=== PATIENT | female | born 1980 | race Asian ===

== ENCOUNTER 2019-06-07 14:09 | Emergency (ER) | payer SELFPAY ==
[~2019-06-07] VITALS: Ht 165.1 cm; Wt 81.6 kg
--- NOTE | 2019-06-07 14:32 | NUR ---
ED Nurse Note: Pt walked into ED w/ c/o abdominal pain that started on L side and radiates to R side and back. Pt states she has had frequent urination. Pt is alert and orientedx4, ambulatory. Pt states she has FARLEY 5/10.
[2019-06-07 14:35] VITALS: BP 152/96
--- NOTE | 2019-06-07 14:40 | Emergency Room Report ---
History of Present Illness General Chief Complaint: Female Urogenital Problems Source: Patient Present Illness [facility] Disclaimer: Please note that this report is being documented using DRAGON technology. This can lead to erroneous entry secondary to incorrect interpretation by the dictating instrument. HPI: 39-year-old female with no reported medical history presents for evaluation of pelvic pain and dysuria. Symptoms began 2 days ago. She now notes 10/10 sharp stabbing pain in the suprapubic region that does not radiate. She denies fever, chills, nausea, vomiting. Denies diarrhea, vaginal discharge or vaginal bleeding. LMP was May 29. Notes increased urinary urgency, frequency and dysuria. No recent history of antibiotic use or history of recurrent UTIs. Tolerating p.o. without difficulty. PMH: Denies PSH: Denies Allergies: Denies Social Hx: Denies Allergies: Coded Allergies: No Known Allergies (Unverified , 06/07/19) Patient History Last Menstrual Period: 05/29/19 Nursing Documentation-PMH Past Medical History: No Stated History Review of Systems All Other Systems: negative except mentioned in HPI Physical Exam Vital Signs Date Time Temp Pulse Resp B/P (MAP) Pulse Ox O2 Delivery O2 Flow Rate FiO2 06/07/19 14:14 98.2 88 16 160/95 (116) 99 Room Air General: Awake and alert, no acute distress HEENT: NC/AT. EOMI. Resp: Normal work of breathing Abdomen: Soft, nondistended, obese. Tenderness palpation of the suprapubic region. Mild tenderness in the lower quadrants bilaterally without rebound or mass. No tenderness in the upper quadrants, epigastrium or periumbilical region. There is no CVA tenderness. Skin: Intact. No abrasions, laceration or rash over the exposed skin MSK: Normal tone and bulk. Moving all extremities. No obvious deformity. Neuro: Awake and alert. Mentating appropriately Medical Decision Making Diagnostic Impression: Primary Impression: Abdominal pain Additional Impressions: Adnexal cyst Microcytic anemia Hydronephrosis ER Course 39-year-old female presents for evaluation of 2 days dysuria. Differential includes was not limited to UTI, pyelonephritis, mittelschmerz, pelvic inflammatory disease, ectopic , gastritis, gastroenteritis, appendicitis. Of these, I believe the urinary tract infection is most likely. Does not appear to have clinical signs of pyelonephritis at this time. Will obtain urinalysis and an hCG though LMP was reportedly 10 days ago. Laboratory Tests Test 06/07/19 15:19 06/07/19 16:40 Urine Color Pale yellow Urine Appearance Clear Urine pH 6 (4.5-8.0) Urine Specific [place] 1.010 (1.005-1.035) Urine Protein Negative (NEGATIVE) Urine Glucose (UA) Negative (NEGATIVE) Urine Ketones Negative (NEGATIVE) Urine Blood Negative (NEGATIVE) Urine Nitrite Negative (NEGATIVE) Urine Bilirubin Negative (NEGATIVE) Urine Urobilinogen Normal MG/DL (0.0-1.0) Urine Leukocyte Esterase Negative (NEGATIVE) Urine HCG, Qualitative Negative (NEGATIVE) White Blood Count 7.6 K/UL (4.8-10.8) Red Blood Count 4.28 M/UL (4.20-5.40) Hemoglobin 9.9 G/DL (12.0-16.0) L Hematocrit 32.2 % (37.0-47.0) L Mean Corpuscular Volume 75 FL (80-99) L Mean Corpuscular Hemoglobin 23.1 PG (27.0-31.0) L Mean Corpuscular Hemoglobin Concent 30.6 G/DL (32.0-36.0) L Red Cell Distribution Width 14.6 % (11.6-14.8) Platelet Count 260 K/UL (150-450) Mean Platelet Volume 7.5 FL (6.5-10.1) Neutrophils (%) (Auto) 57.2 % (45.0-75.0) Lymphocytes (%) (Auto) 28.5 % (20.0-45.0) Monocytes (%) (Auto) 5.5 % (1.0-10.0) Eosinophils (%) (Auto) 8.3 % (0.0-3.0) H Basophils (%) (Auto) 0.5 % (0.0-2.0) Sodium Level 142 MMOL/L (136-145) Potassium Level 3.9 MMOL/L (3.5-5.1) Chloride Level 106 MMOL/L (98-107) Carbon Dioxide Level 29 MMOL/L (21-32) Anion Gap 7 mmol/L (5-15) Blood Urea Nitrogen 9 mg/dL (7-18) Creatinine 0.5 MG/DL (0.55-1.30) L Estimate Glomerular Filtration Rate > 60 mL/min (>60) Glucose Level 104 MG/DL (74-106) Calcium Level 9.0 MG/DL (8.5-10.1) Total Bilirubin 0.2 MG/DL (0.2-1.0) Aspartate Amino Transferase (AST) 15 U/L (15-37) Alanine Aminotransferase (ALT) 21 U/L (12-78) Alkaline Phosphatase 71 U/L (46-116) Total Protein 7.5 G/DL (6.4-8.2) Albumin 3.8 G/DL (3.4-5.0) Globulin 3.7 g/dL Albumin/Globulin Ratio 1.0 (1.0-2.7) CT/MRI/US Diagnostic Results CT/MRI/US Diagnostic Results : Impression Final Report EXAM: CT Abdomen and Pelvis With Intravenous Contrast CLINICAL HISTORY: ABD PAIN TECHNIQUE: Axial computed tomography images of the abdomen and pelvis with intravenous contrast. CTDI is 7.4 mGy and DLP is 373.2 mGy-cm. One or more of the following dose reduction techniques were used: automated exposure control, adjustment of the mA and/or kV according to patient size, use of iterative reconstruction technique. COMPARISON: No relevant prior studies available. FINDINGS: Lung bases: Pulmonary emphysema/air trapping. ABDOMEN: Liver: Unremarkable. Gallbladder and bile ducts: No calcified stones. No ductal dilation. Pancreas: Unremarkable. Spleen: Unremarkable. Adrenals: Unremarkable. Kidneys and ureters: Moderate right hydroureteronephrosis with caliber change in the mid ureter. No obstructing ureteral stone. Right renal cyst. Stomach and bowel: No damián mural thickening. Nonobstructive bowel gas pattern. PELVIS: Appendix: No findings to suggest acute appendicitis. Bladder: Unremarkable. Reproductive: Heterogeneous uterus with prominent endometrial cavity. Complex right adnexal cystic lesion measuring 5 x 3 cm. ABDOMEN and PELVIS: Intraperitoneal space: Unremarkable. Bones/joints: No acute fracture. Soft tissues: Unremarkable. Vasculature: Unremarkable. No abdominal aortic aneurysm. Lymph nodes: No enlarged lymph nodes. IMPRESSION: 1. Moderate right hydroureteronephrosis with caliber change in the mid ureter. No obstructing ureteral stone. 2. Heterogeneous uterus with prominent endometrial cavity. Complex right adnexal cystic lesion measuring 5 x 3 cm. Radiologist: Joesph Tiwari M.D. Electronically Signed: 06/07/19 19:13 Study ready at 19:04 and initial results transmitted at 19:13 Final Report EXAM: US Pelvis Complete, Transabdominal US Pelvis, Transvaginal CLINICAL HISTORY: CYST TECHNIQUE: Real-time transabdominal and transvaginal pelvic ultrasound (complete) with image documentation. Transvaginal imaging was used for better evaluation of the endometrium and adnexa. COMPARISON: No relevant prior studies available. FINDINGS: Uterus/cervix: Heterogeneous uterus measuring 9.8 x 5.9 cm. Thick and heterogeneous endometrium measuring 2 cm. Right ovary: Complex right ovarian cyst/ hypoechoic lesion measuring 5.1 x 4.1 x 3.0 cm. No torsion. The right ovary measures 3.8 x 6.0 x 5.3 cm. Left ovary: Left ovary measures 4.1 x 2.5 cm. No lesion or torsion. Bladder: Unremarkable as visualized. Wall is normal thickness for degree of distention. Other findings: Assuming a negative test. IMPRESSION: Complex right ovarian cyst/ hypoechoic lesion measuring 5.1 x 4.1 x 3.0 cm. No torsion. Radiologist: Joesph Tiwari M.D. Electronically Signed: 06/07/19 21:07 Study ready at 20:58 and initial results transmitted at 21:07 Last Vital Signs Date Time Temp Pulse Resp B/P (MAP) Pulse Ox O2 Delivery O2 Flow Rate FiO2 06/07/19 14:35 98.2 70 19 152/96 98 Room Air Reevaluation Impression Urinalysis had returned unremarkable. No signs of infection. She continues complain of lower pelvic pain and is tender in the lower quadrants. There is no rebound. However less concern for appendicitis diverticulitis is more likely. CT scan and blood work were obtained showing moderate right-sided hydronephrosis without evidence of obstruction as well as a right sided adnexal cyst and a heterogeneous uterus. Labs returned within normal limits. No evidence of renal impairment. Ultrasound was performed showing complex ovarian cyst but no evidence of torsion or abscess. Patient will be discharged with OB/ [facility] follow-up. Discussed reasons to return to the emergency department. They understand agree with this treatment plan. Disposition: HOME, SELF-CARE Condition: Stable Scripts Ibuprofen* (MOTRIN*) 600 Mg Tablet 600 MG ORAL Q8H PRN for For Pain, #30 TAB 0 Refills Prov: Jg Carvalho MD 06/07/19 Iron,Carbonyl/Vit C/Vit B12/Fa (IRON 100 PLUS TABLET) 1 Each Tablet 1 EACH PO DAILY for 30 Days, #30 TAB Prov: Jg Carvalho MD 06/07/19 Jg Carvalho MD Jun 07, 2019 14:40
[2019-06-07 15:59] LABS: APPEARANCE,URINE CLEAR; BILIRUBIN, URINE NEGATIVE (NEGATIVE); COLOR,URINE PALE YELLOW; GLUCOSE, URINE (UA) NEGATIVE (NEGATIVE); KETONES,URINE NEGATIVE (NEGATIVE); LEUKOCYTE ESTERASE ,URINE NEGATIVE (NEGATIVE); NITRITE,URINE NEGATIVE (NEGATIVE); PH,URINE 6 (4.5-8.0); PROTEIN,URINE NEGATIVE (NEGATIVE); UROBILINOGEN,URINE NORMAL MG/DL (0.0-1.0)
[2019-06-07] MEDS ORDERED: Omnipaque-300 100ml vial INJ PRN (16:30)
[2019-06-07 17:00] LABS: BASOPHILS % (AUTO) 0.5 % (0.0-2.0); EOSINOPHILS % (AUTO) 8.3 % (0.0-3.0); HEMATOCRIT 32.2 % (37.0-47.0); HEMOGLOBIN 9.9 G/DL (12.0-16.0); LYMPHOCYTES % (AUTO) 28.5 % (20.0-45.0); MEAN CORPUSCULAR VOLUME 75 FL (80-99); MONOCYTES % (AUTO) 5.5 % (1.0-10.0); NEUTROPHILS % (AUTO) 57.2 % (45.0-75.0); PLATELET COUNT 260 K/UL (150-450); RED BLOOD COUNT 4.28 M/UL (4.20-5.40); RED CELL DISTRIBUTION WIDTH 14.6 % (11.6-14.8); WHITE BLOOD COUNT 7.6 K/UL (4.8-10.8)
[2019-06-07 17:03] LABS: ANION GAP 7 mmol/L (5-15); BLOOD UREA NITROGEN 9 mg/dL (7-18); CARBON DIOXIDE 29 MMOL/L (21-32); CHLORIDE 106 MMOL/L (98-107); CREATININE 0.5 MG/DL (0.55-1.30); POTASSIUM 3.9 MMOL/L (3.5-5.1); SODIUM 142 MMOL/L (136-145)
[2019-06-07 17:07] LABS: ALANINE AMINOTRANSFERASE 21 U/L (12-78); ALBUMIN 3.8 G/DL (3.4-5.0); ALKALINE PHOSPHATASE 71 U/L (46-116); ASPARTATE AMINO TRANSFERASE 15 U/L (15-37); BILIRUBIN,TOTAL 0.2 MG/DL (0.2-1.0)
[2019-06-07] MEDS ORDERED: IRON 100 PLUS1 EACH PO (18:15)
[2019-06-07 19:03] VITALS: BP 150/85
--- NOTE | 2019-06-07 19:03 | NUR ---
ED Nurse Note: Report received from JULIUS Troncoso. Pt resting in bed awaiting results from CT. VSS no s/s of distress noted.
--- NOTE | 2019-06-07 19:03 | NUR ---
HAND-OFF: Report given to JULIUS Mckinney.
--- NOTE | 2019-06-07 19:12 | NUR ---
ED Nurse Note: CT at bedside
--- NOTE | 2019-06-07 19:14 | Diagnostic Imaging Report ---
EXAM: CT Abdomen and Pelvis With Intravenous Contrast CLINICAL HISTORY: ABD PAIN TECHNIQUE: Axial computed tomography images of the abdomen and pelvis with intravenous contrast. CTDI is 7.4 mGy and DLP is 373.2 mGy-cm. One or more of the following dose reduction techniques were used: automated exposure control, adjustment of the mA and/or kV according to patient size, use of iterative reconstruction technique. COMPARISON: No relevant prior studies available. FINDINGS: Lung bases: Pulmonary emphysema/air trapping. ABDOMEN: Liver: Unremarkable. Gallbladder and bile ducts: No calcified stones. No ductal dilation. Pancreas: Unremarkable. Spleen: Unremarkable. Adrenals: Unremarkable. Kidneys and ureters: Moderate right hydroureteronephrosis with caliber change in the mid ureter. No obstructing ureteral stone. Right renal cyst. Stomach and bowel: No damián mural thickening. Nonobstructive bowel gas pattern. PELVIS: Appendix: No findings to suggest acute appendicitis. Bladder: Unremarkable. Reproductive: Heterogeneous uterus with prominent endometrial cavity. Complex right adnexal cystic lesion measuring 5 x 3 cm. ABDOMEN and PELVIS: Intraperitoneal space: Unremarkable. Bones/joints: No acute fracture. Soft tissues: Unremarkable. Vasculature: Unremarkable. No abdominal aortic aneurysm. Lymph nodes: No enlarged lymph nodes. IMPRESSION: 1. Moderate right hydroureteronephrosis with caliber change in the mid ureter. No obstructing ureteral stone. 2. Heterogeneous uterus with prominent endometrial cavity. Complex right adnexal cystic lesion measuring 5 x 3 cm.
[2019-06-07] MEDS ORDERED: Ketorolac 30mg Inj IV ONE (19:15)
--- NOTE | 2019-06-07 19:48 | NUR ---
ED Nurse Note: US at bedside
--- NOTE | 2019-06-07 21:00 | NUR ---
ED Nurse Note: ERMD at bedside
--- NOTE | 2019-06-07 21:08 | Diagnostic Imaging Report ---
EXAM: US Pelvis Complete, Transabdominal US Pelvis, Transvaginal CLINICAL HISTORY: CYST TECHNIQUE: Real-time transabdominal and transvaginal pelvic ultrasound (complete) with image documentation. Transvaginal imaging was used for better evaluation of the endometrium and adnexa. COMPARISON: No relevant prior studies available. FINDINGS: Uterus/cervix: Heterogeneous uterus measuring 9.8 x 5.9 cm. Thick and heterogeneous endometrium measuring 2 cm. Right ovary: Complex right ovarian cyst/ hypoechoic lesion measuring 5. 1 x 4.1 x 3.0 cm. No torsion. The right ovary measures 3.8 x 6.0 x 5.3 cm. Left ovary: Left ovary measures 4.1 x 2.5 cm. No lesion or torsion. Bladder: Unremarkable as visualized. Wall is normal thickness for degree of distention. Other findings: Assuming a negative test. IMPRESSION: Complex right ovarian cyst/ hypoechoic lesion measuring 5.1 x 4.1 x 3.0 cm. No torsion.
[2019-06-07] MEDS ORDERED: IBUPROFEN600 MG ORAL (21:10)
[2019-06-07 21:15] VITALS: BP 145/80
[2019-06-07] MEDS ORDERED: HYDROcodone/Acetamin 7.5/325 tab ORAL ONE (21:15)
--- NOTE | 2019-06-07 21:40 | NUR ---
ER DISCHARGE NOTE: Patient is cleared to be discharged home per ERMD, pt is aox4, on room air, with stable vital signs. pt was given dc and prescription instructions, pt was able to verbalize understanding, pt id band removed. pt is able to ambulate with steady gait. pt took all belongings.
== END 2019-06-07 21:40 | disposition home or self-care (01) ==
LOC: EMR 15:30
DX: R10.9 Unspecified abdominal pain (principal); R30.0 Dysuria; D50.9 Iron deficiency anemia, unspecified; N13.30 Unspecified hydronephrosis; N83.201 Unspecified ovarian cyst, right side; N28.1 Cyst of kidney, acquired; E66.9 Obesity, unspecified; Z68.30 Body mass index [BMI] 30.0-30.9, adult
CPT/HCPCS: 36415; 74177; 76856; 80053; 81003; 81025; 85025; 96361; 96374; 99284; J1885; J7030; Q9967

== ENCOUNTER 2019-10-16 16:46 | Emergency (ER) | payer MEDICAID ==
[~2019-10-16] VITALS: Ht 162.6 cm; Wt 79.4 kg
[~2019-10-16 16:46] MED LIST: IBUPROFEN600 MG ORAL; IRON 100 PLUS1 EACH PO
[2019-10-16 17:02] VITALS: BP 128/77
[2019-10-16] MEDS ORDERED: Ketorolac 30mg Inj IV ONE (17:15)
[2019-10-16 17:22] LABS: BASOPHILS % (AUTO) 0.5 % (0.0-2.0); EOSINOPHILS % (AUTO) 8.8 % (0.0-3.0); HEMATOCRIT 29.8 % (37.0-47.0); HEMOGLOBIN 9.8 G/DL (12.0-16.0); LYMPHOCYTES % (AUTO) 24.7 % (20.0-45.0); MEAN CORPUSCULAR VOLUME 73 FL (80-99); MONOCYTES % (AUTO) 6.7 % (1.0-10.0); NEUTROPHILS % (AUTO) 59.3 % (45.0-75.0); PLATELET COUNT 280 K/UL (150-450); RED BLOOD COUNT 4.11 M/UL (4.20-5.40); RED CELL DISTRIBUTION WIDTH 14.7 % (11.6-14.8); WHITE BLOOD COUNT 7.8 K/UL (4.8-10.8)
[2019-10-16 17:23] LABS: APPEARANCE,URINE CLEAR; BILIRUBIN, URINE NEGATIVE (NEGATIVE); COLOR,URINE PALE YELLOW; GLUCOSE, URINE (UA) NEGATIVE (NEGATIVE); KETONES,URINE NEGATIVE (NEGATIVE); LEUKOCYTE ESTERASE ,URINE NEGATIVE (NEGATIVE); NITRITE,URINE NEGATIVE (NEGATIVE); PH,URINE 6 (4.5-8.0); PROTEIN,URINE NEGATIVE (NEGATIVE); UROBILINOGEN,URINE NORMAL MG/DL (0.0-1.0)
[2019-10-16 17:32] LABS: ANION GAP 7 mmol/L (5-15); BLOOD UREA NITROGEN 10 mg/dL (7-18); CALCIUM 7.9 MG/DL (8.5-10.1); CARBON DIOXIDE 29 MMOL/L (21-32); CHLORIDE 103 MMOL/L (98-107); CREATININE 0.6 MG/DL (0.55-1.30); POTASSIUM 3.9 MMOL/L (3.5-5.1); SODIUM 139 MMOL/L (136-145)
[2019-10-16 17:37] LABS: ALANINE AMINOTRANSFERASE 20 U/L (12-78); ALBUMIN 3.8 G/DL (3.4-5.0); ALKALINE PHOSPHATASE 83 U/L (46-116); ASPARTATE AMINO TRANSFERASE 16 U/L (15-37); BILIRUBIN,TOTAL 0.2 MG/DL (0.2-1.0)
[2019-10-16 17:49] VITALS: BP 122/80
--- NOTE | 2019-10-16 17:49 | Emergency Room Report ---
History of Present Illness General Chief Complaint: Abdominal Pain Source: Patient Present Illness HPI 39-year-old female with history of right-sided hydronephrosis and ovarian cyst who was seen at [facility] 2 months ago for this issue here complaining of left- sided flank pain is been going on for the past 3 months. Patient has not been seen by a primary doctor yet. Denies any fall or injury or heavy lifting. Denies any nausea vomiting diarrhea. Denies fever and chills. Rates the pain 5 out of 10 and intermittent. Reports that started in the left flank and radiates to the front. Denies any hematuria, dysuria, urinary frequency vaginal bleeding or spotting. Denies any weight loss, night sweats. Chest pain , shortness of breath, headache and dizziness. Allergies: Coded Allergies: No Known Allergies (Unverified , 06/07/19) COVID-19 Screening Contact w/high risk pt: No Recent Travel to affected area: No Experienced COVID-19 symptoms?: No COVID-19 Testing performed SUPERVISOR FINISHING: No Patient History Past Medical History: see triage record Past Surgical History: none Pertinent Family History: none Last Menstrual Period: 1 week ago Now: No Immunizations: UTD Reviewed Nursing Documentation: PMH: Agreed; PSxH: Agreed Nursing Documentation-PMH Past Medical History: No Stated History Review of Systems All Other Systems: negative except mentioned in HPI Physical Exam Vital Signs Date Time Temp Pulse Resp B/P (MAP) Pulse Ox O2 Delivery O2 Flow Rate FiO2 10/16/19 16:56 98.4 81 18 128/77 (94) 98 Room Air Sp02 EP Interpretation: reviewed, normal General Appearance: no apparent distress, alert, GCS 15, non-toxic Head: normocephalic, atraumatic Eyes: bilateral eye normal inspection, bilateral eye PERRL ENT: hearing grossly normal, normal pharynx, no angioedema, normal voice Neck: full range of motion, supple/symm/no masses Respiratory: chest non-tender, lungs clear, normal breath sounds, speaking full sentences Cardiovascular #1: regular rate, rhythm, no edema Gastrointestinal: normal bowel sounds, non tender, soft, non-distended, no guarding, no rebound Genitourinary: no CVA tenderness Musculoskeletal: inflammation Neurologic: alert, motor strength/tone normal, oriented Psychiatric: normal inspection, judgement/insight normal, memory normal Skin: no rash Lymphatic: no adenopathy Medical Decision Making PA Attestation All diagnoses and treatment plans were reviewed and discussed with my supervising physician Dr. Carvalho Diagnostic Impression: Primary Impression: Hydronephrosis Additional Impressions: Ovarian cyst Gastritis ER Course 39-year-old female with history of right-sided hydronephrosis and ovarian cyst who was seen at [facility] 2 months ago for this issue here complaining of left- sided flank pain is been going on for the past 3 months. Patient has not been seen by a primary doctor yet. Denies any fall or injury or heavy lifting. Denies any nausea vomiting diarrhea. Denies fever and chills. Rates the pain 5 out of 10 and intermittent. Reports that started in the left flank and radiates to the front. Denies any hematuria, dysuria, urinary frequency vaginal bleeding or spotting. Denies any weight loss, night sweats. Chest pain , shortness of breath, headache and dizziness. Ddx considered but are not limited to: appendicitis, cholecystis, gastritis, gastroenteritis, UTI, pyelonephritis, SBO, diverticulitis, influenza with GI manifestation, VT, complication with , hydronephrosis, ovarian cyst Vital signs: are WNL, pt. is afebrile H&PE are most consistent with: Hydronephrosis mild, ovarian cyst, gastritis ORDERS: CBC, CMP, test, renal ultrasound, abdominal pelvis ultrasound , omeprazole, Tylenol ED INTERVENTIONS: Toradol DISCHARGE: At this time pt. is stable for d/c to home. Will provide printed patient care instructions, and any necessary prescriptions. Care plan and follow up instructions have been discussed with the patient prior to discharge. Follow-up with primary doctor for referral to [facility] as well as wood buffer. Avoid eating spicy acidic food, if worsening symptoms return to the emergency room CT/MRI/US Diagnostic Results CT/MRI/US Diagnostic Results #1: Imaging Test Ordered: Renal ultrasound Impression EXAM: US Retroperitoneal Complete CLINICAL HISTORY: PAIN TECHNIQUE: Real-time complete ultrasound of the retroperitoneum with image documentation. COMPARISON: 06/07/2019. FINDINGS: Aorta: No aneurysm. Common iliac arteries: No aneurysm. Inferior vena cava: Inferior vena cava is unremarkable. Right kidney: The right kidney measures 11.9 x 4.2 x 4.5 cm. Mild hydronephrosis of the right kidney of uncertain etiology. A 2 to a 2.4 x 2.3 cm simple cyst upper pole region of the right kidney, based on ultrasound criteria. No stones. Left kidney: The left kidney measures 10.5 x 5 x 4.8 cm's. The left kidney is unremarkable. No stones. No hydronephrosis. Bladder: Prevoid bladder has a volume of 200-0.48 cc. No focal bladder abnormality. IMPRESSION: 1. Mild right renal hydronephrosis of uncertain etiology. 2. Simple right renal cyst, based on ultrasound criteria. 3. Left kidney is unremarkable. 4. No focal bladder abnormality. CT/MRI/US Diagnostic Results #2: Imaging Test Ordered: abd/pelvic US Impression Final Report EXAM: US Pelvis Transabdominal, Complete CLINICAL HISTORY: Pelvic pain. TECHNIQUE: Real-time complete transabdominal pelvic ultrasound with image documentation. COMPARISON: 06/07/2019. FINDINGS: Uterus/cervix: The uterus measures 9.8 x 6 x 6 x 5.4 centers. Endometrial stripe measures 0.42 cm. Heterogeneity of the uterus and endometrial stripe of uncertain significance. Nabothian cysts. No myometrial mass. Right ovary: Right ovary measures 5.1 x 3.5 x 3.9 cm. Flow to both ovaries noted. 5 cm complex right ovarian cyst of uncertain etiology, similar to that noted on the previous study. Normal blood flow. Left ovary: Left ovary measures 3.7 x 3.1 x 1.9 cm. Follicles within the left ovary. Free fluid: No free fluid noted. Bladder: Unremarkable as visualized. Wall is normal thickness for degree of distention. IMPRESSION: 1. Flow to both ovaries noted. 2. Complex right ovarian cyst measuring over 5 cm in size, similar to that noted on the previous study. 3. Magnetic resonance imaging of the pelvis with gadolinium administration will provide additional information. At the very least, repeat pelvic ultrasonography in 2 months is advised to follow. 4. Heterogeneity of the uterus and endometrial stripe. Again short-term follow- up is advised. Last Vital Signs Date Time Temp Pulse Resp B/P (MAP) Pulse Ox O2 Delivery O2 Flow Rate FiO2 10/16/19 17:02 81 18 Room Air 10/16/19 17:02 98.4 128/77 98 Disposition: HOME, SELF-CARE Condition: Stable Referrals: NOT CHOSEN IPA/MD,REFERRING (PCP) Additional Instructions: Follow-up with primary doctor for referral to [facility] as well as wood buffer. Avoid eating spicy acidic food, if worsening symptoms return to the emergency room Eze [place] Oct 16, 2019 17:49
--- NOTE | 2019-10-16 18:46 | Diagnostic Imaging Report ---
EXAM: US Retroperitoneal Complete CLINICAL HISTORY: PAIN TECHNIQUE: Real-time complete ultrasound of the retroperitoneum with image documentation. COMPARISON: 06/07/2019. FINDINGS: Aorta: No aneurysm. Common iliac arteries: No aneurysm. Inferior vena cava: Inferior vena cava is unremarkable. Right kidney: The right kidney measures 11.9 x 4.2 x 4.5 cm. Mild hydronephrosis of the right kidney of uncertain etiology. A 2 to a 2.4 x 2.3 cm simple cyst upper pole region of the right kidney, based on ultrasound criteria. No stones. Left kidney: The left kidney measures 10.5 x 5 x 4.8 cm's. The left kidney is unremarkable. No stones. No hydronephrosis. Bladder: Prevoid bladder has a volume of 200-0.48 cc. No focal bladder abnormality. IMPRESSION: 1. Mild right renal hydronephrosis of uncertain etiology. 2. Simple right renal cyst, based on ultrasound criteria. 3. Left kidney is unremarkable. 4. No focal bladder abnormality.
--- NOTE | 2019-10-16 18:49 | Diagnostic Imaging Report ---
EXAM: US Pelvis Transabdominal, Complete and US Duplex Arterial/Venous of the Pelvis, Complete CLINICAL HISTORY: Pelvic pain. TECHNIQUE: Real-time complete transabdominal pelvic ultrasound with image documentation. Real-time duplex ultrasound scan of the arterial and venous flow of the pelvis with color Doppler flow and spectral waveform analysis. COMPARISON: 06/07/2019. FINDINGS: Uterus/cervix: The uterus measures 9.8 x 6.6 x 5.4 cm. Endometrial stripe measures 0.42 cm. There is heterogeneity of the uterus appeared There is heterogeneity of the endometrial stripe. Multiple nabothian cysts. No myometrial mass. Right ovary: Right ovary measures 6.9 x 4.8 x 4.5 cm. Flow to both ovaries is noted. There is a 5 cm complex cyst within the right ovary, similar to that noted on the previous study of 06/07/2019, of uncertain etiology. No torsion. Left ovary: Left ovary measures 3.7 x 3.1 x 1.9 cm is. Follicles are noted within the left ovary. Free fluid: No free fluid. Bladder: Unremarkable as visualized. Wall is normal thickness for degree of distention. IMPRESSION: 1. Complex right ovarian cyst is noted measuring over 5 cm in diameter, similar to that noted on the previous study, of uncertain etiology. 2. Magnetic resonance imaging of the pelvis with gadolinium administration will provide additional information. 3. At the very least, repeat pelvic ultrasonography 2 months is advised to follow. 4. Heterogeneity of the uterus and endometrial stripe of uncertain significant. Again short-term follow-up is advised. 5. Flow to both ovaries noted.
--- NOTE | 2019-10-16 18:51 | Diagnostic Imaging Report ---
EXAM: US Pelvis Transabdominal, Complete CLINICAL HISTORY: Pelvic pain. TECHNIQUE: Real-time complete transabdominal pelvic ultrasound with image documentation. COMPARISON: 06/07/2019. FINDINGS: Uterus/cervix: The uterus measures 9.8 x 6 x 6 x 5.4 centers. Endometrial stripe measures 0.42 cm. Heterogeneity of the uterus and endometrial stripe of uncertain significance. Nabothian cysts. No myometrial mass. Right ovary: Right ovary measures 5.1 x 3.5 x 3.9 cm. Flow to both ovaries noted. 5 cm complex right ovarian cyst of uncertain etiology, similar to that noted on the previous study. Normal blood flow. Left ovary: Left ovary measures 3.7 x 3.1 x 1.9 cm. Follicles within the left ovary. Free fluid: No free fluid noted. Bladder: Unremarkable as visualized. Wall is normal thickness for degree of distention. IMPRESSION: 1. Flow to both ovaries noted. 2. Complex right ovarian cyst measuring over 5 cm in size, similar to that noted on the previous study. 3. Magnetic resonance imaging of the pelvis with gadolinium administration will provide additional information. At the very least, repeat pelvic ultrasonography in 2 months is advised to follow. 4. Heterogeneity of the uterus and endometrial stripe. Again short-term follow-up is advised.
[2019-10-16] MEDS ORDERED: TYLENOL EXTRA500 MG ORAL (19:04)
[2019-10-16] MEDS ORDERED: OMEPRAZOLE20 M3 ORAL (19:04)
[2019-10-16 19:15] VITALS: BP 134/74
[2019-10-16 19:20] VITALS: BP 122/80
== END 2019-10-16 19:20 | disposition home or self-care (01) ==
LOC: EMR 17:05
DX: N13.30 Unspecified hydronephrosis (principal); N83.291 Other ovarian cyst, right side; N28.1 Cyst of kidney, acquired; K29.70 Gastritis, unspecified, without bleeding
CPT/HCPCS: 36415; 76770; 76830; 76856; 80053; 81003; 81025; 85025; 96374; J1885; Z7502; 99284

== ENCOUNTER 2019-12-18 13:32 | Emergency (ER) | payer MEDICAID ==
[~2019-12-18] VITALS: Ht 162.6 cm; Wt 80.7 kg
[~2019-12-18 13:32] MED LIST changes: +OMEPRAZOLE20 M3 ORAL; +TYLENOL EXTRA500 MG ORAL
[2019-12-18 13:50] VITALS: BP 163/91
--- NOTE | 2019-12-18 13:50 | NUR ---
ED Nurse Note: Pt walked in from home c/o headache/dizziness since yesterday. Pt denies n/v/d. Pt afebrile. Respirations even and unlabored on room air. Vitals stable as documented. A+Ox4, speaking in full sentences.
--- NOTE | 2019-12-18 14:18 | Emergency Room Report ---
History of Present Illness General Chief Complaint: Dizziness Source: Patient Present Illness HPI This patient states over the past 2 days she has felt very lightheaded. She states she is also had headache and felt like her forehead was very "hot." She did not take her temperature as she does not have a thermometer, however, she did take Tylenol and placed ice on her forehead. She states that she gets very weak when she walks and fell twice in the past 2 days. She states that her vision becomes dark and she cannot stand any longer. Her states that she fell twice in the past 2 days. She does have some pain along her neck. She denies tingling or numbness. She denies focal weakness. She denies recent injury or trauma other than 2 fainting episodes. She is not on any new medications or supplements. She denies tobacco, alcohol or drug use. She does not take any supplements. She denies chest pain or shortness of breath. She denies cough or congestion. She denies abdominal pain. She denies nausea or vomiting. She denies dysuria or hematuria. She has no other complaints. 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 Patient History Past Medical History: none Past Surgical History: none Social History: Denies: smoking, alcohol use, drug use Last Menstrual Period: 12/06/19 Reviewed Nursing Documentation: PMH: Agreed; PSxH: Agreed Nursing Documentation-PMH Past Medical History: No Stated History Review of Systems All Other Systems: negative except mentioned in HPI Physical Exam Vital Signs Date Time Temp Pulse Resp B/P (MAP) Pulse Ox O2 Delivery O2 Flow Rate FiO2 12/18/19 13:41 98.8 84 16 161/95 (117) 98 Room Air Sp02 EP Interpretation: reviewed, normal General Appearance: no apparent distress, alert, GCS 15, non-toxic Head: normocephalic, atraumatic Eyes: bilateral eye normal inspection, bilateral eye PERRL ENT: hearing grossly normal, normal pharynx, no angioedema, normal voice Neck: normal inspection, full range of motion, supple/symm/no masses, tender lateral, tender midline, other - fatty hump on back of neck. Respiratory: chest non-tender, lungs clear, normal breath sounds, no respiratory distress, no retraction, no accessory muscle use, speaking full sentences Cardiovascular #1: regular rate, rhythm, no edema Gastrointestinal: normal bowel sounds, non tender, soft, non-distended, no guarding, no rebound Rectal: deferred Musculoskeletal: back normal, normal range of motion, gait/station normal, non- tender Neurologic: alert, motor strength/tone normal, oriented x3, sensory intact, responsive, speech normal Psychiatric: judgement/insight normal, memory normal, mood/affect normal, no suicidal/homicidal ideation Skin: no rash, normal color Medical Decision Making Diagnostic Impression: Primary Impression: Iron deficiency anemia Additional Impression: Episodic lightheadedness ER Course The patient symptoms are very nonspecific. Given an element of syncope and lightheadedness, I did obtain a cardiac work-up to include CBC, CMP, troponin, EKG and chest x-ray. This was all noncontributory. Specifically, no concerning EKG findings, negative troponin and unremarkable chest x-ray. The patient's laboratory work-up did show a microcytic anemia, and with further discussion with the patient, she has a history of iron deficiency. I would not expect the mild anemia to cause this patient's symptoms. Given the ongoing headache and the possibility there could be an element of balance involved in the patient's symptoms, I did obtain a CT of the head and C-spine. The CT did identify an unusual alignment of C1 on C2. The radiologist felt that this was nonspecific in this setting. I felt that I should further assess this with more detailed imaging, so I obtained an MRI brain and cervical spine all of which were unremarkable. There were no findings concerning for subluxation or abnormality. I am unsure of the exact etiology of the patient's lightheadedness , however, I did not identify an emergency medical condition. Regarding the history, the patient has no history of structural heart disease or coronary artery disease, no family history of sudden , has no shortness of breath, and the syncope is not exertional. On physical exam, the patient is not hypotensive, has no findings of CHF, and no significant cardiac murmur suggestive of valvular heart disease or cardiac outflow obstruction. The patient reports no history of seizure or head trauma. EKG showed no evidence of concerning findings of QT prolongation, Brugada syndrome or significant ST changes suggestive of acute ischemia, dysrhythmias or significant conduction abnormalities. On laboratory evaluation, blood sugar was normal and the patient is not anemic. The patient was counseled that, though unlikely, the possibility of an emergent cause of syncope may be present and that the patient should return immediately if symptoms persist or worsen. I believe the patient is stable for discharge to followup with her PMD for further workup. This patient was evaluated in the context of the global COVID-19 pandemic, which necessitated consideration that the patient might be at risk for infection with the [id number]-4 virus that causes COVID-19. Institutional protocols and algorithms that pertain to the evaluation of patients at risk for COVID-19 and the state of rapid change based on information released by multiple regulatory bodies including the CDC and federal and state organizations. These policies and algorithms were followed during the patient' s care in the ED. Laboratory Tests Test 12/18/19 14:00 12/18/19 14:22 White Blood Count 6.9 K/UL (4.8-10.8) Red Blood Count 4.64 M/UL (4.20-5.40) Hemoglobin 10.2 G/DL (12.0-16.0) L Hematocrit 33.6 % (37.0-47.0) L Mean Corpuscular Volume 73 FL (80-99) L Mean Corpuscular Hemoglobin 22.1 PG (27.0-31.0) L Mean Corpuscular Hemoglobin Concent 30.4 G/DL (32.0-36.0) L Red Cell Distribution Width 16.1 % (11.6-14.8) H Platelet Count 265 K/UL (150-450) Mean Platelet Volume 7.1 FL (6.5-10.1) Neutrophils (%) (Auto) 62.0 % (45.0-75.0) Lymphocytes (%) (Auto) 22.9 % (20.0-45.0) Monocytes (%) (Auto) 7.1 % (1.0-10.0) Eosinophils (%) (Auto) 7.6 % (0.0-3.0) H Basophils (%) (Auto) 0.4 % (0.0-2.0) Sodium Level 141 MMOL/L (136-145) Potassium Level 3.4 MMOL/L (3.5-5.1) L Chloride Level 105 MMOL/L (98-107) Carbon Dioxide Level 25 MMOL/L (21-32) Anion Gap 11 mmol/L (5-15) Blood Urea Nitrogen 7 mg/dL (7-18) Creatinine 0.5 MG/DL (0.55-1.30) L Estimated Glomerular Filtration Rate > 60 mL/min (>60) Glucose Level 120 MG/DL (74-106) H Calcium Level 9.0 MG/DL (8.5-10.1) Total Bilirubin 0.2 MG/DL (0.2-1.0) Aspartate Amino Transferase (AST) 17 U/L (15-37) Alanine Aminotransferase (ALT) 21 U/L (12-78) Alkaline Phosphatase 80 U/L (46-116) Total Creatine Kinase 100 U/L (26-308) Troponin I 0.000 ng/mL (0.000-0.056) Total Protein 7.7 G/DL (6.4-8.2) Albumin 4.0 G/DL (3.4-5.0) Globulin 3.7 g/dL Albumin/Globulin Ratio 1.1 (1.0-2.7) Urine Color Pale yellow Urine Appearance Clear Urine pH 6 (4.5-8.0) Urine Specific Lyons 1.010 (1.005-1.035) Urine Protein Negative (NEGATIVE) Urine Glucose (UA) Negative (NEGATIVE) Urine Ketones Negative (NEGATIVE) Urine Blood Negative (NEGATIVE) Urine Nitrite Negative (NEGATIVE) Urine Bilirubin Negative (NEGATIVE) Urine Urobilinogen Normal MG/DL (0.0-1.0) Urine Leukocyte Esterase Negative (NEGATIVE) Urine HCG, Qualitative Negative (NEGATIVE) Microbiology Date/Time Source Procedure Growth Status 12/18/19 14:15 Nasopharynx SARS-CoV-2 RdRp Gene Assay - Final Complete EKG Diagnostic Results Rate: normal Rhythm: NSR ST Segments: no acute changes Other Impression NSST findings in lead III. small u waves. Rhythm Strip Diag. Results EP Interpretation: yes Rate: 70's Chest X-Ray Diagnostic Results Chest X-Ray Diagnostic Results : Chest X-Ray Ordered: Yes # of Views/Limited/Complete: 1 View Indication: Other - syncope EP Interpretation: Yes Interpretation: no consolidation, no effusion, no pneumothorax, no acute cardiopulmonary disease Impression: No acute disease Electronically Signed by: She Alanis DO CT/MRI/US Diagnostic Results CT/MRI/US Diagnostic Results : Imaging Test Ordered: CT head, CT C-spine, MRI Brain, MRI C-spine. Impression CT C-spine: Impression: Unusual rotatory subluxation in the sagittal plane of C1 relative to C2 with the posterior arch displaced cephalad in relation to the C2 spinous process and resulting and alignment abnormality of the anterior atlantoaxial joint and the lateral C1-C2 joints. No evidence of spinal canal compromise related to such. No evidence of edema posteriorly to suggest acute intraspinal ligamentous injury. However, MRI may be useful to better evaluate the posterior ligament complex. Associated fracture Multilevel degenerative changes and spinal stenosis secondary to short pedicles , as detailed on a level bilateral basis above Findings discussed by phone with Dr. Solorzano in the emergency room at the time of interpretation CT head: No acute findings. Specifically no intracranial bleed, mass effect or edema. See official report. MRI Brain:IMPRESSION: 1. No evidence for acute trauma in the cervical spine. 2. 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 MRI C-spine:FINDINGS: Vertebrae: Unremarkable. No acute fracture. No subluxation. Spinal cord: Unremarkable. Normal signal. Soft tissues: Unremarkable. There is mild cervical degenerative disc disease and facet hypertrophy. Some mild posterior disc bulges. There is some resultant mild spinal canal narrowing at C3-4, C4-5, C5-6 and C6-7. There is also some mild congenital spinal canal narrowing. IMPRESSION: 1. No evidence for acute trauma in the cervical spine. 2. 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 Last Vital Signs Date Time Temp Pulse Resp B/P (MAP) Pulse Ox O2 Delivery O2 Flow Rate FiO2 12/18/19 13:50 81 18 Room Air 12/18/19 13:50 98.5 163/91 99 Status: improved Disposition: HOME, SELF-CARE Condition: Improved Patient Instructions: Dizziness, Syncope She Alanis DO Dec 18, 2019 14:18
--- NOTE | 2019-12-18 14:20 | NUR ---
ED Nurse Note: son @ bedside to translate
[2019-12-18 14:28] LABS: APPEARANCE,URINE CLEAR; BILIRUBIN, URINE NEGATIVE (NEGATIVE); COLOR,URINE PALE YELLOW; GLUCOSE, URINE (UA) NEGATIVE (NEGATIVE); KETONES,URINE NEGATIVE (NEGATIVE); LEUKOCYTE ESTERASE ,URINE NEGATIVE (NEGATIVE); NITRITE,URINE NEGATIVE (NEGATIVE); PH,URINE 6 (4.5-8.0); PROTEIN,URINE NEGATIVE (NEGATIVE); UROBILINOGEN,URINE NORMAL MG/DL (0.0-1.0)
[2019-12-18 14:41] LABS: BASOPHILS % (AUTO) 0.4 % (0.0-2.0); EOSINOPHILS % (AUTO) 7.6 % (0.0-3.0); HEMATOCRIT 33.6 % (37.0-47.0); HEMOGLOBIN 10.2 G/DL (12.0-16.0); LYMPHOCYTES % (AUTO) 22.9 % (20.0-45.0); MEAN CORPUSCULAR VOLUME 73 FL (80-99); MONOCYTES % (AUTO) 7.1 % (1.0-10.0); PLATELET COUNT 265 K/UL (150-450); RED BLOOD COUNT 4.64 M/UL (4.20-5.40); RED CELL DISTRIBUTION WIDTH 16.1 % (11.6-14.8); WHITE BLOOD COUNT 6.9 K/UL (4.8-10.8)
--- NOTE | 2019-12-18 14:53 | NUR ---
ED Nurse Note: pt in radiology
[2019-12-18 14:57] LABS: ANION GAP 11 mmol/L (5-15); BLOOD UREA NITROGEN 7 mg/dL (7-18); CARBON DIOXIDE 25 MMOL/L (21-32); CHLORIDE 105 MMOL/L (98-107); CREATININE 0.5 MG/DL (0.55-1.30); POTASSIUM 3.4 MMOL/L (3.5-5.1); SODIUM 141 MMOL/L (136-145)
--- NOTE | 2019-12-18 15:01 | NUR ---
ED Nurse Note: pt back from CT. No acute distress noted
[2019-12-18 15:02] LABS: ALANINE AMINOTRANSFERASE 21 U/L (12-78); ALBUMIN/GLOBULIN RATIO 1.1 (1.0-2.7); ALKALINE PHOSPHATASE 80 U/L (46-116); ASPARTATE AMINO TRANSFERASE 17 U/L (15-37); BILIRUBIN,TOTAL 0.2 MG/DL (0.2-1.0); CREATINE KINASE 100 U/L (26-308)
--- NOTE | 2019-12-18 15:47 | Diagnostic Imaging Report ---
Indications: Head pain Technique: Spiral acquisitions obtained through the brain. Angled axial and coronal 5 x 5 mm slices were reconstructed. Total dose length product 1045 mGycm. CTDI vol(s) 53 mGy. Dose reduction achieved using automated exposure control Comparison: None. Findings: No acute intracranial hemorrhage or edema. No mass effect nor midline shift. Normal rm-white differentiation. Normal size ventricles and extra axial CSF spaces. The mastoids are clear. The calvarium is intact. Impression: Negative The CT scanner at [facility] is accredited by the [employer] and the scans are performed using protocols designed to limit radiation exposure to as low as reasonably achievable to attain images of sufficient resolution adequate for diagnostic evaluation.
[2019-12-18 16:00] VITALS: BP 144/88
--- NOTE | 2019-12-18 16:04 | Diagnostic Imaging Report ---
Indication: Pain along her neck Technique: Spiral acquisitions obtained through the cervical spine. No IV contrast utilized. Multiplanar reconstructions were generated. Total dose length product 513 mGycm. CTDIvol(s) 20 mGy. Dose reduction achieved using automated exposure control. Comparison: none Findings: There is unusual subluxation of C1 on C2 in the sagittal plane. The posterior arch of C1 is displaced upward relative to the C2 spinous process. There is resultant widening of the upper portion of the interval between the odontoid and the anterior arch of C1. The lateral masses are subluxed bilaterally relative to the C2 lateral masses, about 4 mm this does not significantly compromise the spinal canal. There is no associated fracture. No significant edema is seen between the posterior C1 arch and the C2 spinous process. The occipital condyles are seated normally The remaining bony alignment is normal. No acute fractures. No dislocations. Short pedicles result in borderline spinal stenosis from C3 through C5. At C5-6, there is mild narrowing of the right neural foramen. There is mild broad-based posterior disc protrusion, which results in mild to moderate narrowing of the spinal canal at this level. At the remaining levels, no significant disc bulge or protrusion or neural foraminal narrowing. The included extraspinal soft tissues are unremarkable Impression: Unusual rotatory subluxation in the sagittal plane of C1 relative to C2 with the posterior arch displaced cephalad in relation to the C2 spinous process and resulting and alignment abnormality of the anterior atlantoaxial joint and the lateral C1-C2 joints. No evidence of spinal canal compromise related to such. No evidence of edema posteriorly to suggest acute intraspinal ligamentous injury. However, MRI may be useful to better evaluate the posterior ligament complex. Associated fracture Multilevel degenerative changes and spinal stenosis secondary to short pedicles, as detailed on a level bilateral basis above Findings discussed by phone with Dr. Solorzano in the emergency room at the time of interpretation The CT scanner at [facility] is accredited by the [employer] and the scans are performed using protocols designed to limit radiation exposure to as low as reasonably achievable to attain images of sufficient resolution adequate for diagnostic evaluation.
--- NOTE | 2019-12-18 16:46 | NUR ---
ED Nurse Note: pt en route to radiology via wheelchair
--- NOTE | 2019-12-18 17:58 | Diagnostic Imaging Report ---
EXAM: MR Head Without Intravenous Contrast CLINICAL HISTORY: TRAUMA TECHNIQUE: Magnetic resonance images of the head/brain without intravenous contrast in multiple planes. COMPARISON: CT imaging of the head 12/18/2019. FINDINGS: Brain: Evaluation of axial diffusion-weighted sequences reveals no foci of increased signal to suggest acute cerebral vascular event. No abnormal extra axial collection. No hemorrhage. Midline shift: No midline shift or mass-effect per Midline anatomy is unremarkable. Ventricles: Unremarkable. No ventriculomegaly. Bones/joints: The 7th and 8th cranial nerves are unremarkable. Sinuses: Unremarkable as visualized. No acute sinusitis. Mastoid air cells: Unremarkable as visualized. No mastoid effusion. Orbits: Unremarkable as visualized. IMPRESSION: No acute intracranial pathology is detected.
[2019-12-18 18:00] VITALS: BP 151/82
--- NOTE | 2019-12-18 18:08 | Diagnostic Imaging Report ---
Indication: Chest pain Technique: One view of the chest Comparison: none Findings: Lungs and pleural spaces are clear. Heart size is normal. Impression: No acute process
[2019-12-18] MEDS ORDERED: ALPRAZolam 0.25mg tab ORAL ONE (18:30)
--- NOTE | 2019-12-18 18:50 | NUR ---
ED Nurse Note: pt back in radiology
--- NOTE | 2019-12-18 19:02 | NUR ---
ED Nurse Note: Report given to Gamaliel Manuel RN. Pt in CT.
--- NOTE | 2019-12-18 19:06 | NUR ---
ED Nurse Note: Received patient from simone avendano. patient back from imaging via wheelchair with net technical architect. accompanied by son. patient able to ambulate to bed with steady gait. reattached to monitor; vss. patient in no acute distress. denies pain at this time. all safety measures met.
[2019-12-18 19:08] VITALS: BP 147/87
--- NOTE | 2019-12-18 19:36 | Diagnostic Imaging Report ---
EXAM: MR Cervical Spine Without Intravenous Contrast CLINICAL HISTORY: TRAUMA TECHNIQUE: Magnetic resonance images of the cervical spine without intravenous contrast in multiple planes. COMPARISON: Cervical spine CT 12/18/2019. FINDINGS: Vertebrae: Unremarkable. No acute fracture. No subluxation. Spinal cord: Unremarkable. Normal signal. Soft tissues: Unremarkable. There is mild cervical degenerative disc disease and facet hypertrophy. Some mild posterior disc bulges. There is some resultant mild spinal canal narrowing at C3-4, C4-5, C5-6 and C6-7. There is also some mild congenital spinal canal narrowing. IMPRESSION: 1. No evidence for acute trauma in the cervical spine. 2. 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
[2019-12-18] MEDS ORDERED: FERROUS SULFAT325 MG ORAL (19:57)
[2019-12-18 20:06] VITALS: BP 135/83
--- NOTE | 2019-12-18 20:06 | NUR ---
ER DISCHARGE NOTE: Patient is cleared to be discharged per ERMD, pt is aox4, on room air, with stable vital signs. pt was given dc and prescription instructions, pt was able to verbalize understanding, pt id band and iv site removed without complications. pt is able to ambulate with steady gait. pt took all belongings.
== END 2019-12-18 20:06 | disposition home or self-care (01) ==
LOC: EMR 14:20
DX: D50.9 Iron deficiency anemia, unspecified (principal); R42 Dizziness and giddiness
CPT/HCPCS: 36415; 70450; 70551; 71045; 72125; 72141; 80053; 81003; 81025; 82550; 84484; 85025; 93005; 96360; 96361; U0002; Z7502; 99284

== ENCOUNTER 2020-02-18 15:10 | Emergency (ER) | payer MEDICAID ==
[~2020-02-18] VITALS: Ht 167.6 cm; Wt 79.8 kg
[~2020-02-18 15:10] MED LIST changes: +FERROUS SULFAT325 MG ORAL
[2020-02-18 15:40] VITALS: BP 121/80
[2020-02-18] MEDS ORDERED: Bacitracin Oint UD TOPIC ONE (15:54)
--- NOTE | 2020-02-18 16:08 | Emergency Room Report ---
History of Present Illness General Chief Complaint: Skin Rash/Abscess Source: Patient Present Illness HPI 39-year-old female with no significant past medical history of iron deficiency anemia currently taking first sulfate was advised complaining of various lesions over buttocks as well as left lower abdomen and acute appearing for the past several months. Denies any history of diabetes or any underlying medical condition. Lesions appear to be cystic pockets. According to the son who is also translating for the patient they have been applying a cream brought in by family member from [place] showing some relief. Reports that the lesions at first pruritic and no other painful fever and chills. No abscess formation noted. The lesions appear to be folding areas of skin. Patient is obese. Has not taken any other medication for symptom relief. Denies diffuse abdominal pain, nausea vomiting, fever and chills. Denies . Allergies: Coded Allergies: No Known Allergies (Unverified , 06/07/19) COVID-19 Screening Contact w/high risk pt: No Recent Travel to affected area: No Experienced COVID-19 symptoms?: No COVID-19 Testing performed REC THERAPIST: Yes - a month ago COVID-19 Screening: Negative COVID-19 COVID-19 Testing Source: [facility] [place] Patient History Past Medical History: see triage record Past Surgical History: none Pertinent Family History: none Last Menstrual Period: 01/26/20 Now: No Reviewed Nursing Documentation: PMH: Agreed; PSxH: Agreed Review of Systems All Other Systems: negative except mentioned in HPI Physical Exam Vital Signs Date Time Temp Pulse Resp B/P (MAP) Pulse Ox O2 Delivery O2 Flow Rate FiO2 02/18/20 15:19 98.2 78 19 121/80 (94) 98 Room Air Sp02 EP Interpretation: reviewed General Appearance: no apparent distress, alert, GCS 15, non-toxic Head: normocephalic, atraumatic Eyes: bilateral eye normal inspection, bilateral eye PERRL ENT: hearing grossly normal, normal pharynx, no angioedema, normal voice Neck: full range of motion, supple, supple/symm/no masses Respiratory: chest non-tender, lungs clear, normal breath sounds, no rhonchi, no respiratory distress, no retraction, no wheezing, speaking full sentences Cardiovascular #1: regular rate, rhythm, no edema, no murmur Cardiovascular #2: 2+ carotid (R), 2+ carotid (L), 2+ radial (R), 2+ radial (L), 2+ dorsalis pedis (R), 2+ dorsalis pedis (L) Gastrointestinal: normal bowel sounds, non tender, soft, non-distended, no guarding, no rebound Rectal: deferred Genitourinary: no CVA tenderness Musculoskeletal: back normal, no calf tenderness Neurologic: alert, motor strength/tone normal, oriented x3, sensory intact, responsive, speech normal Psychiatric: judgement/insight normal, memory normal, mood/affect normal, no suicidal/homicidal ideation Skin: other - Cyst pockets on skin folds and thighs and left lower quadrant Lymphatic: no adenopathy Medical Decision Making PA Attestation All my diagnosis and treatment plans were reviewed ad discussed with my supervising physician Dr. Mcmahon Diagnostic Impression: Primary Impression: Cyst ER Course 39-year-old female with no significant past medical history of iron deficiency anemia currently taking first sulfate was advised complaining of various lesions over buttocks as well as left lower abdomen and acute appearing for the past several months. Denies any history of diabetes or any underlying medical condition. Lesions appear to be cystic pockets. According to the son who is also translating for the patient they have been applying a cream brought in by family member from [place] showing some relief. Reports that the lesions at first pruritic and no other painful fever and chills. No abscess formation noted. The lesions appear to be folding areas of skin. Patient is obese. Has not taken any other medication for symptom relief. Denies diffuse abdominal pain, nausea vomiting, fever and chills. Denies . Ddx considered but are not limited to : Cellulitis, DVT, superficial infection, abscess Vital signs: are WNL, pt. is afebrile H&PE are most consistent with:cyst ORDERS: CBC, CMP, lactic acid, Keflex, prednisone, hydrocortisone cream ED INTERVENTIONS: None required at this time. DISCHARGE: At this time pt. is stable for d/c to home. Will provide printed patient care instructions, and any necessary prescriptions. Care plan and follow up instructions have been discussed with the patient prior to discharge. Patient to take medication as directed, follow with primary care provider and physical plant manager, worsening symptoms return to emergency room. The center be an underlying condition that is causing this appearance of suspected that revealed himself intermittently. Last Vital Signs Date Time Temp Pulse Resp B/P (MAP) Pulse Ox O2 Delivery O2 Flow Rate FiO2 02/18/20 15:40 98.2 89 19 121/80 98 Room Air Disposition: HOME, SELF-CARE Condition: Stable Scripts Hydrocortisone 1% Oint (Hydrocortisone 1% Oint*) Y Oint 2 GM TP TID, #28 GM Prov: Eze Hill 02/18/20 Prednisone* (PREDNISONE*) 20 Mg Tablet 40 MG ORAL DAILY for 5 Days, #10 TAB Prov: Eze Hill 02/18/20 Cephalexin* (KEFLEX*) 500 Mg Capsule 500 MG ORAL EVERY 6 HOURS for 7 Days, #28 CAP Prov: Eze Hill 02/18/20 Referrals: NOT CHOSEN IPA/,REFERRING (PCP) Patient Instructions: Abscess Additional Instructions: Take antibiotics as directed, follow-up with your primary care provider, worsening symptoms return to the emergency Eze Hill Feb 18, 2020 16:08
[2020-02-18 16:21] LABS: BASOPHILS % (AUTO) 0.4 % (0.0-2.0); EOSINOPHILS % (AUTO) 5.2 % (0.0-3.0); HEMATOCRIT 32.5 % (37.0-47.0); HEMOGLOBIN 10.5 G/DL (12.0-16.0); LYMPHOCYTES % (AUTO) 21.8 % (20.0-45.0); MEAN CORPUSCULAR VOLUME 74 FL (80-99); MONOCYTES % (AUTO) 6.9 % (1.0-10.0); NEUTROPHILS % (AUTO) 65.7 % (45.0-75.0); PLATELET COUNT 254 K/UL (150-450); RED CELL DISTRIBUTION WIDTH 16.9 % (11.6-14.8); WHITE BLOOD COUNT 8.9 K/UL (4.8-10.8)
[2020-02-18 16:37] LABS: ANION GAP 5 mmol/L (5-15); BLOOD UREA NITROGEN 10 mg/dL (7-18); CARBON DIOXIDE 31 MMOL/L (21-32); CHLORIDE 102 MMOL/L (98-107); CREATININE 0.8 MG/DL (0.55-1.30); POTASSIUM 3.5 MMOL/L (3.5-5.1); SODIUM 138 MMOL/L (136-145)
[2020-02-18 16:40] LABS: ALANINE AMINOTRANSFERASE 20 U/L (12-78); ALBUMIN 3.8 G/DL (3.4-5.0); ALBUMIN/GLOBULIN RATIO 1.1 (1.0-2.7); ALKALINE PHOSPHATASE 87 U/L (46-116); ASPARTATE AMINO TRANSFERASE 18 U/L (15-37); BILIRUBIN,TOTAL 0.2 MG/DL (0.2-1.0)
[2020-02-18] MEDS ORDERED: CEPHALEXIN500 MG ORAL (17:08)
[2020-02-18] MEDS ORDERED: PREDNISONE20 MG ORAL (17:08)
[2020-02-18] MEDS ORDERED: HYDROCORTISONE28 G2 TP (17:08)
[2020-02-18 17:17] VITALS: BP 125/71
== END 2020-02-18 17:17 | disposition home or self-care (01) ==
LOC: EMR 15:20
DX: L72.9 Follicular cyst of the skin and subcutaneous tissue, unspecified (principal)
CPT/HCPCS: 36415; 80053; 83605; 85025; Z7502; 99283

== ENCOUNTER 2020-06-17 15:36 | Emergency (ER) | payer OTHER, MEDICAID ==
[~2020-06-17] VITALS: Ht 165.1 cm; Wt 79.4 kg
[~2020-06-17 15:36] MED LIST changes: +CEPHALEXIN500 MG ORAL; +HYDROCORTISONE28 G2 TP; +PREDNISONE20 MG ORAL
[2020-06-17 15:54] VITALS: BP 138/81
[2020-06-17] MEDS ORDERED: Mylanta II UD 30ml ORAL ONE (16:30)
[2020-06-17] MEDS ORDERED: Lidocaine 2% Visc 15ml soln ORAL ONE (16:30)
--- NOTE | 2020-06-17 16:51 | Emergency Room Report ---
History of Present Illness General Chief Complaint: Abdominal Pain Source: Patient Present Illness HPI This is a 40-year-old female who presents to the emergency department complaining of 6 out of 10 severity diffuse abdominal pain which on occasion does become a 9 out of 10 severity just before needing to have a bowel movement. Patient reports that she has been having symptoms x2 days. Patient reports that she was seen 3 days ago at [facility] for vomiting and chest pain. Patient reports that she initially was having diarrhea. She denies blood in the vomit or stool. She denies black tarry stools. Patient reports that her stools have become more solid however she is having worsening of her lower abdominal pain. She reports that the vomiting has subsided at this time. She denies fevers or chills. She denies ill contacts with similar symptoms. She denies significant past medical history. She does report after having blood work performed at [facility] that she was diagnosed with anemia. She reports she had chest x-ray which was normal. Patient presents with her paperwork which include laboratory results, imaging results as well as prescribed medications. It appears patient had basic lab work performed with serum blood which was negative. Covid-19 Test was negative. She did not have any urinalysis performed patient overall had a negative work-up and was discharged with Zofran and naproxen prescriptions. She reports some radiation of her pain to the left flank area. She reports generalized low back pain and anterior hip/thigh pain as well. She also is reporting urinary frequency. She denies dysuria, hematuria or urgency. She denies pelvic pressure or saddle anesthesia. Patient denies chest pain, palpitations, headache, neck pain/stiffness. No other aggravating or relieving factors at this time. Allergies: Coded Allergies: No Known Allergies (Unverified , 06/07/19) COVID-19 Screening Contact w/high risk pt: No Recent Travel to affected area: No Experienced COVID-19 symptoms?: Yes COVID-19 Testing performed [employer]: Yes COVID-19 Screening: Negative COVID-19 COVID-19 Testing Source: [facility] Patient History Past Medical History: see triage record Past Surgical History: none Pertinent Family History: none Now: No Reviewed Nursing Documentation: PMH: Agreed; PSxH: Agreed Nursing Documentation-PMH Past Medical History: No History, Except For Hx Cardiac Problems: Yes - anemia Review of Systems All Other Systems: negative except mentioned in HPI Physical Exam Vital Signs Date Time Temp Pulse Resp B/P (MAP) Pulse Ox O2 Delivery O2 Flow Rate FiO2 06/17/20 15:54 98.2 88 18 138/81 (100) 96 Room Air Sp02 EP Interpretation: reviewed, normal General Appearance: no apparent distress, alert, GCS 15, non-toxic Head: normocephalic, atraumatic Eyes: bilateral eye normal inspection, bilateral eye PERRL ENT: hearing grossly normal, normal voice Neck: full range of motion Respiratory: lungs clear, normal breath sounds, speaking full sentences Cardiovascular #1: regular rate, rhythm, no edema, normal capillary refill Gastrointestinal: normal bowel sounds, soft, non-distended, no guarding, tenderness - TTP to the LUQ and LLQ. no rebound. No McBurney point tenderness. Rectal: deferred Genitourinary: normal inspection, no CVA tenderness Musculoskeletal: back normal, normal range of motion, gait/station normal, non- tender Neurologic: alert, motor strength/tone normal, oriented x3, sensory intact, responsive, speech normal Psychiatric: judgement/insight normal Skin: no rash, normal color Medical Decision Making PA Attestation Dr. Mcmahon is my supervising Physician whom patient management has been discussed with. Diagnostic Impression: Primary Impression: Abdominal pain Qualified Codes: R10.84 - Generalized abdominal pain Additional Impression: Enteritis ER Course This is a 40-year-old female who presents to the emergency department complaining of 6 out of 10 severity diffuse abdominal pain which on occasion does become a 9 out of 10 severity just before needing to have a bowel movement. Patient reports that she has been having symptoms x2 days. Patient reports that she was seen 3 days ago at [facility] for vomiting and chest pain. Patient reports that she initially was having diarrhea. She denies blood in the vomit or stool. She denies black tarry stools. Patient reports that her stools have become more solid however she is having worsening of her lower abdominal pain. She reports that the vomiting has subsided at this time. She denies fevers or chills. She denies ill contacts with similar symptoms. She denies significant past medical history. She does report after having blood work performed at [facility] that she was diagnosed with anemia. She reports she had chest x-ray which was normal. Patient presents with her paperwork which include laboratory results, imaging results as well as prescribed medications. It appears patient had basic lab work performed with serum blood which was negative. Covid-19 Test was negative. She did not have any urinalysis performed patient overall had a negative work-up and was discharged with Zofran and naproxen prescriptions. She reports some radiation of her pain to the left flank area. She reports generalized low back pain and anterior hip/thigh pain as well. She also is reporting urinary frequency. She denies dysuria, hematuria or urgency. She denies pelvic pressure or saddle anesthesia. Patient denies chest pain, palpitations, headache, neck pain/stiffness. No other aggravating or relieving factors at this time. Ddx considered but are not limited to Diverticulitis, acute appendicitis, diarrhea,UC, PUD, GE, pancreatitis, gallstone, ovarian torsion, ectopic , PID tubo-ovarian abscess, UTI, renal calculi, obstruction just to name a few. Vital signs: are WNL, pt. is afebrile. H&PE are most consistent with diffuse abdominal pain and mild tenderness to palpation, no localized tenderness. Physical exam does not suggest acute abdomen. Bowel sounds are decreased in all 4 quadrants. Negative CVA tenderness. Overall patient is nontoxic in appearance currently in no acute distress but appears mildly uncomfortable. ORDERS: -CBC, CMP, LIPASE: Unremarkable -UA: unremarkable -URINE HCG: negative ED INTERVENTIONS: -PO Pepcid, Mylanta, viscous lidocaine - 1 Liter NS Patient's daughter was able to receive a picture of medications that the patient has been taking [id number] at home which appears to be loperamide. Patient does admit to being somewhat constipated after taking 6 of the pills. -I do not identify an emergent condition at this time. With current presentation, pt. is stable for close outpatient follow up and conservative treatment. D/w pt. to return promptly to ED with worsening or new symptoms.- Pt. verbalizes' understanding and agreement with proposed treatment plan. - Please note that this Emergency Department Report was dictated using [employer] advanced technology software, occasionally this can lead to erroneous entry secondary to interpretation by the dictation equipment. DISCHARGE: At this time pt. is stable for d/c to home. Will provide printed patient care instructions, and any necessary prescriptions. Care plan and follow up instructions have been discussed with the patient prior to discharge. CT/MRI/US Diagnostic Results CT/MRI/US Diagnostic Results : Imaging Test Ordered: CT Abd & Pelvis WO contrast Impression " IMPRESSION: 1. Mild right hydronephrosis versus pelviectasis. No ureteral calculus. 2. Moderate colonic stool which may be ileus/constipation. Mildly thickened bowel which may be underdistention versus enteritis. No mechanical bowel obstruction. No diverticulitis." --Per official radiology report- Please see report for specific details. Last Vital Signs Date Time Temp Pulse Resp B/P (MAP) Pulse Ox O2 Delivery O2 Flow Rate FiO2 06/17/20 15:54 98.2 88 18 138/81 (100) 96 Room Air Status: improved Disposition: HOME, SELF-CARE Condition: Stable Scripts Mag Hydrox/Aluminum Hyd/Simeth (Mylanta Maximum Strength Liq) 355 Ml Oral.susp 15 ML PO TID, #355 ML Prov: Elsa Waters 06/17/20 Lidocaine HCl 2% Viscous (Lidocaine HCl 2% Viscous) 100 Ml Solution 15 ML ORAL QID, #200 ML Prov: Elsa Waters 06/17/20 Referrals: Mauro Thayer [facility]. [facility] + [facility] Patient Instructions: Abdominal Pain, Adult, Food Choices to Help Relieve Diarrhea, Adult, Viral Gastroenteritis, Adult Additional Instructions: Discontinue taking [id number] loperamide antidiarrheal medication. Drink plenty of fluids. Please read provided information regarding foods that are recommended to help relieve some of your symptoms. Take medications as directed. Follow up with a Primary Care Provider in 3-5 days, even if your symptoms have resolved. --Please review list of primary care clinics, if you do not already have a primary care provider Return sooner to ED if new symptoms occur, or current symptoms become worse. - Please note that this Emergency Department Report was dictated using [employer] advanced technology software, occasionally this can lead to erroneous entry secondary to interpretation by the dictation equipment. Elsa Waters Jun 17, 2020 16:51
[2020-06-17 16:53] LABS: APPEARANCE,URINE CLEAR; BILIRUBIN, URINE NEGATIVE (NEGATIVE); COLOR,URINE PALE YELLOW; GLUCOSE, URINE (UA) NEGATIVE (NEGATIVE); KETONES,URINE NEGATIVE (NEGATIVE); LEUKOCYTE ESTERASE ,URINE 1+ (NEGATIVE); NITRITE,URINE NEGATIVE (NEGATIVE); PH,URINE 5 (4.5-8.0); PROTEIN,URINE NEGATIVE (NEGATIVE); UROBILINOGEN,URINE NORMAL MG/DL (0.0-1.0)
[2020-06-17 16:58] LABS: BASOPHILS % (AUTO) 0.4 % (0.0-2.0); EOSINOPHILS % (AUTO) 6.6 % (0.0-3.0); HEMATOCRIT 30.8 % (37.0-47.0); LYMPHOCYTES % (AUTO) 15.6 % (20.0-45.0); MEAN CORPUSCULAR VOLUME 76 FL (80-99); MONOCYTES % (AUTO) 6.6 % (1.0-10.0); NEUTROPHILS % (AUTO) 70.8 % (45.0-75.0); PLATELET COUNT 251 K/UL (150-450); RED BLOOD COUNT 4.06 M/UL (4.20-5.40); RED CELL DISTRIBUTION WIDTH 15.1 % (11.6-14.8); WHITE BLOOD COUNT 9.3 K/UL (4.8-10.8)
[2020-06-17 17:07] LABS: ANION GAP 8 mmol/L (5-15); BLOOD UREA NITROGEN 11 mg/dL (7-18); CALCIUM 9.1 MG/DL (8.5-10.1); CARBON DIOXIDE 28 MMOL/L (21-32); CHLORIDE 103 MMOL/L (98-107); CREATININE 0.7 MG/DL (0.55-1.30); POTASSIUM 3.6 MMOL/L (3.5-5.1); SODIUM 139 MMOL/L (136-145)
[2020-06-17 17:13] LABS: ALANINE AMINOTRANSFERASE 23 U/L (12-78); ALBUMIN/GLOBULIN RATIO 1.1 (1.0-2.7); ALKALINE PHOSPHATASE 89 U/L (46-116); ASPARTATE AMINO TRANSFERASE 18 U/L (15-37); BILIRUBIN,TOTAL 0.1 MG/DL (0.2-1.0)
[2020-06-17] MEDS ORDERED: Ketorolac 30mg Inj ONE (17:29)
[2020-06-17] MEDS ORDERED: Ketorolac 30mg Inj IV ONE (17:30)
--- NOTE | 2020-06-17 17:31 | Diagnostic Imaging Report ---
EXAM: CT Abdomen and Pelvis Without Intravenous Contrast CLINICAL HISTORY: ABD PAIN TECHNIQUE: Axial computed tomography images of the abdomen and pelvis without intravenous contrast. CTDI is 7.3 mGy and DLP is 389.8 mGy-cm. One or more of the following dose reduction techniques were used: automated exposure control, adjustment of the mA and/or kV according to patient size, use of iterative reconstruction technique. COMPARISON: 06/07/2019. FINDINGS: Lung bases: Unremarkable. ABDOMEN: Liver: Unremarkable. Gallbladder and bile ducts: Unremarkable. No calcified stones. Pancreas: Unremarkable. Spleen: Unremarkable. Adrenals: Unremarkable. Kidneys and ureters: Mild right hydronephrosis versus pelviectasis. No ureteral calculus. Stomach and bowel: Moderate colonic stool which may be ileus/constipation. Mildly thickened bowel which may be underdistention versus enteritis. No mechanical bowel obstruction. No diverticulitis. PELVIS: Appendix: No findings to suggest acute appendicitis. Bladder: Unremarkable. Reproductive: Stable mild right adnexal prominence. ABDOMEN and PELVIS: Intraperitoneal space: No free air. Bones/joints: No acute fracture. Soft tissues: Unremarkable. Vasculature: Unremarkable. Lymph nodes: Unremarkable. IMPRESSION: 1. Mild right hydronephrosis versus pelviectasis. No ureteral calculus. 2. Moderate colonic stool which may be ileus/constipation. Mildly thickened bowel which may be underdistention versus enteritis. No mechanical bowel obstruction. No diverticulitis.
[2020-06-17] MEDS ORDERED: LIDOCAINE VISC100 ML ORAL (18:07)
[2020-06-17] MEDS ORDERED: MYLANTA MAXIMU355 ML PO (18:07)
== END 2020-06-17 18:33 | disposition home or self-care (01) ==
LOC: EMR 17:13
DX: R10.84 Generalized abdominal pain (principal); K52.9 Noninfective gastroenteritis and colitis, unspecified
CPT/HCPCS: 36415; 74176; 80053; 81003; 81025; 83690; 85025; 96361; 96374; 99284; J7030